=== PATIENT | female | born 1965 | race Caucasian/White ===

== ENCOUNTER 2016-12-08 12:33 | Emergency (ER) | payer BC ==
--- NOTE | 2016-12-08 13:50 | EDM.PDOC ---
ED HPI Behavioral Health - General Chief Complaint: Drug or Alcohol Abuse Stated Complaint: DETOX- ALCOHOL Time Seen by Provider: 12/08/16 12:42 Source of Information: Reports: Patient, Family (), RN notes reviewed Exam Limitations: Reports: No limitations - History of Present Illness INITIAL COMMENTS - FREE TEXT/NARRATIVE: The patient states that she spoke to Giselle, a counselor at [facility], this morning, regarding her alcoholism. She states that she is having difficulty stopping drinking on her own. She was instructed to come to the ED for medical evaluation and clearance prior to her being admitted there for detoxification. The patient states that she drinks approximately 1 pint of vodka, 4 times a week. Her last drink was approximately at 02:00 this morning. She states that she has never previously entered either inpatient or outpatient treatment for alcohol abuse, and she has never been hospitalized as a result for alcoholism, either because of a toxic alcohol level, or because of an accident related to intoxication. She admits to having had 2 DUIs. At this time, the patient has no complaints. She does not feel jittery or tremulous. She has no nausea, and no headache. She is noted to be hemodynamically stable, with no hypertension, tachycardia, tachypnea, or fever. - Related Data Allergies Allergy/AdvReac Type Severity Reaction Status Date / Time No Known Allergies Allergy Verified 12/08/16 12:54 Home Medications: Home Meds Atenolol 100 mg PO DAILY 12/08/16 [History] Escitalopram [Lexapro] 20 mg PO DAILY 12/08/16 [History] Naltrexone 50 mg PO DAILY 12/08/16 [History] buPROPion [Wellbutrin SR] 150 mg PO BID 12/08/16 [History] busPIRone [Buspar] 10 mg PO BID 12/08/16 [History] neck Pain Score (Numeric/FACES): 3 Past Medical History Cardiovascular History: Reports: High cholesterol (untreated), Hypertension Genitourinary History: Reports: Urinary incontinence Musculoskeletal History: Reports: Neck pain, chronic Psychiatric History: Reports: Anxiety, Depression - Past Surgical History GI Surgical History: Reports: Bariatric procedure (February 2004) Social & Family History - Family History Family Medical History: Noncontributory - Tobacco Use Smoking Status *Q: Never Smoker Second Hand Smoke Exposure: No - Caffeine Use Caffeine Use: Reports: Coffee, Soda - Alcohol Use Alcohol Use History: Yes Days Per Week of Alcohol Use: 4 Number of Drinks Per Day: 10 Total Drinks Per Week: 40 - Recreational Drug Use Recreational Drug Use: Yes Drug Use in Last 12 Months: Yes Recreational Drug Type: Reports: Marijuana/Hashish Other Recreational Drug Type: yearly use Recreational Drug Use Frequency: Rarely - Living Situation & Occupation Living situation: Reports: , with spouse 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) ED ROS GENERAL - Review of Systems Review Of Systems: See Below Constitutional: Reports: no symptoms HEENT: Reports: No symptoms Respiratory: Reports: No Symptoms Cardiovascular: Reports: No symptoms Endocrine: Reports: no symptoms GI/Abdominal: Reports: No symptoms : Reports: no symptoms Musculoskeletal: Reports: no symptoms Skin: Reports: no symptoms Neurological: Reports: No Symptoms Psychiatric: Reports: No symptoms Hematologic/Lymphatic: Reports: no symptoms Immunologic: Reports: no symptoms ED EXAM, BEHAVIORAL HEALTH - Physical Exam Exam: See Below Exam Limited By: No limitations General Appearance: alert, WD/WN, no apparent distress Eye Exam: bilateral eye: EOMI, normal inspection Ears: normal external exam, hearing grossly normal Nose: normal inspection, no blood Throat/Mouth: Normal inspection, Normal lips, Normal voice, No airway compromise Head: atraumatic, normocephalic Neck: normal inspection, full range of motion Respiratory/Chest: no respiratory distress, lungs clear, normal breath sounds, no accessory muscle use, chest non-tender Cardiovascular: normal peripheral pulses, regular rate, rhythm, no edema, no gallop, no JVD, no murmur, no rub GI/Abdominal: normal bowel sounds, soft, non tender, no organomegaly, no distention, no abnormal bruit, no mass, other (Obese) Back Exam: normal inspection, full range of motion, NT Extremities: normal inspection, normal range of motion, non-tender, normal capillary refill, no pedal edema Neurological: alert, normal cognition, no motor/sensory deficits, oriented x 3 Psychiatric: normal affect Skin Exam: Warm, Dry, Intact, Normal color, No rash COURSE, BEHAVIORAL HEALTH COMP - Course Vital Signs: Last Vital Signs Temp 36.6 C 12/08/16 12:40 Pulse 63 12/08/16 16:26 Resp 18 12/08/16 16:26 BP 132/71 12/08/16 16:26 Pulse Ox 98 12/08/16 16:26 Orders, Labs, Meds: Laboratory Tests 12/08/16 Range/Units 14:49 Ethyl Alcohol 0.03 (0.00) gm% Medical Clearance: 12/08/16 13:40 Case discussed with Giselle, counselor at [facility]. She stated that the plan was to have the patient admitted to their crisis bed for "detox", and that the patient was sent to the ED for medical clearance. If I find that the patient is medically cleared, they would like me to give orders to their nurse. I asked what was meant by "detox" and was told that it involved medical treatment for alcohol withdrawal. In my medical opinion, the patient does not require medical detoxification. She is currently sober with no withdrawal symptoms whatsoever, and, further, is at extremely low risk for developing alcohol withdrawal symptoms, as she drinks only a pint of vodka 4 times a week. I believe the patient would be best served with outpatient rehabilitation, and consider inpatient rehabilitation ( not detoxification) only if outpatient fails. This was relayed to Giselle, who nevertheless would prefer to place the patient into their crisis bed. I am prepared to document medical clearance for the patient, but I am not appeared to give orders for medical detoxification that I don't believe the patient needs. 12/08/16 13:55 Notified that [facility] would like an alcohol level on the patient. If her alcohol level is above 0.30, they cannot accept her. Unfortunately, the medical indication for an alcohol level from the emergency department is as part of an evaluation for altered mental status. In this case , the patient is completely sober, and I have no medical justification for work during an alcohol level, although I acknowledge [facility] interest in determining an alcohol level prior to accepting the patient. Since I have already determined that the patient is medically stable, the appropriate route for obtaining an alcohol level would be for the patient have this drawn as an outpatient, ordered by her PCP. Under these circumstances, the test would likely be covered by insurance, whereas if I ordered it through the ED, it likely would not. 12/08/16 14:51 Case discussed with Ciarra, Automatic Pilot [employer]. She states that she just has a contract with [facility] that allows an alcohol level to be performed for the purpose of medical clearance. 12/08/16 15:40 The patient's alcohol level is 0.03. This has been relayed to call Giselle Estrella. She stated that she will have the admission nurse call me for orders that includes only the patient's usual home medications. Departure - Departure Time of Disposition: 16:08 Disposition: Home, Self-Care 01 Condition: good Clinical Impression: Alcohol abuse Instructions: Alcohol Abuse and Nutrition Referrals: Slime Saez NP [Primary Care Provider] - Additional Instructions: You were seen in the Emergency Room today for medical clearance before being admitted to [facility] for treatment of alcoholism. We find that you are medically fit for either inpatient or outpatient alcohol treatment. Please go directly to [facility] at: [address], in [facility] on the [facility] campus, as arranged. Continue taking your usual home medications. If any other problems, please do not hesitate to return to the ER.
[2016-12-08 16:29] VITALS: BP 132/71
== END 2016-12-08 16:30 | disposition home or self-care (01) ==
LOC: JD.ED 12:33
DX: F10.10 Alcohol abuse, uncomplicated (principal); E78.00 Pure hypercholesterolemia, unspecified; I10 Essential (primary) hypertension; F41.9 Anxiety disorder, unspecified; F32.9 Major depressive disorder, single episode, unspecified; Z98.84 Bariatric surgery status; Y90.0 Blood alcohol level of less than 20 mg/100 ml
CPT/HCPCS: 36415; 99285; G0480; 99283

== ENCOUNTER 2020-12-13 04:23 | Emergency (ER) | payer BC, OTHER ==
[2020-12-13 04:56] VITALS: BP 173/99; PULSE 110
[2020-12-13] MEDS ORDERED: Sodium Chloride 0.9% 1,000 ML IV ONE (05:03)
[2020-12-13] MEDS ORDERED: Benztropine 1 MG Tab PO STA (05:03)
[2020-12-13] MEDS ORDERED: Ondansetron 4 MG/2 ML SDV IVPUSH ONE (05:03)
[2020-12-13] MEDS ORDERED: Haloperidol Lactate 5 MG/ML SDV IM ONE (05:03)
--- NOTE | 2020-12-13 05:09 | EDM.PDOC ---
ED HPI GENERAL MEDICAL PROBLEM - General Chief Complaint: Headache Stated Complaint: weak headache sick to stomach Time Seen by Provider: 12/13/20 04:44 Source of Information: Reports: Patient History Limitations: Reports: No Limitations - History of Present Illness INITIAL COMMENTS - FREE TEXT/NARRATIVE: Mrs. Mccain is a very pleasant 54-year-old woman who now presents the ED stating that she has had a continuous headache the past 2 days, since this past 12/11/2020. She is unable to describe the character of the pain, but states that it is felt across her entire forehead and behind her eyes, and also at the base of her skull. She has had both nausea and vomiting, and reports photophobia, although denies having phonophobia, visual changes, such as blurry vision, wavy lines, or flashing lights, and denies neurologic symptoms, such as tingling, numbness, or weakness. She states that her current headache is similar to headaches that she initially developed when she was a teenager, and were treated as migraines with rizatriptan, however, she states that she has not had such a headache for the past 15 years. She states that she has never had an imaging study of her head, either MRI or CT scan. The patient states that she took some ibuprofen Monday morning, and again Monday evening, without any improvement in her symptoms. Here in the ED, the patient's initial BP is found to be elevated at 173/99, with tachycardia of 110 bpm. She is afebrile, saturating 99% on room air. Prior to Monday, the patient denies having a recent fever, chills, sore throat, ear pain, nasal or sinus congestion, cough, dyspnea, chest pain, palpitations, nausea, vomiting, constipation, diarrhea, abdominal pain, urinary symptoms, recent weight gain or weight loss, recent bloody bowel movements or black bowel movements, recent joint aches, headaches, or rashes. The patient's PCP is Slime Saez NP. She has not received an influenza vaccine this season, and declined an offer to get one here in the ED. Headache Pain Score (Numeric/FACES): 8 - Related Data Allergies Allergy/AdvReac Type Severity Reaction Status Date / Time No Known Allergies Allergy Verified 12/08/16 12:54 Home Meds: Home Meds atenoloL [Atenolol] 100 mg PO DAILY 12/08/16 [History] buPROPion [Wellbutrin SR] 150 mg PO BID 12/08/16 [History] busPIRone [Buspar] 10 mg PO BID 12/08/16 [History] PARoxetine HCl [Paxil] 40 mg PO DAILY 12/13/20 [History] Rizatriptan Benzoate [Rizatriptan] 1 tab PO ASDIRECTED PRN #3 tab.rapdis 12/13/20 [Rx] methocarbamoL [Methocarbamol] 750 mg PO DAILY 12/13/20 [History] traZODone HCl [Trazodone HCl] 50 mg PO BEDTIME PRN 12/13/20 [History] Past Medical History Cardiovascular History: Reports: High Cholesterol (untreated), Hypertension Neurological History: Reports: Migraines Psychiatric History: Reports: Anxiety, Depression Endocrine/Metabolic History: Reports: Obesity/BMI 30+ - Past Surgical History HEENT Surgical History: Reports: Oral Surgery (dental extractions) GI Surgical History: Reports: Bariatric Procedure (Trung-en-Y gastric bypass Feb 2004) Musculoskeletal Surgical History: Reports: Amputation (right thumb, partial) Social & Family History - Tobacco Use Tobacco Use Status *Q: Never Tobacco User - Caffeine Use Caffeine Use: Reports: None - Alcohol Use Alcohol Use History: Yes Alcohol Use Frequency: Socially - Recreational Drug Use Recreational Drug Use: No - Living Situation & Occupation Living situation: Reports: (), Other (with friends) Occupation: Unemployed ED ROS GENERAL - Review of Systems Review Of Systems: Comprehensive ROS is negative, except as noted in HPI. - Physical Exam Exam: See Below Exam Limited By: No Limitations General Appearance: Alert, WD/WN, No Apparent Distress Eye Exam: Bilateral Eye: EOMI, Normal Inspection Ears: Normal External Exam, Normal Canal, Hearing Grossly Normal, Normal TMs Nose: Normal Inspection, Normal Mucosa, No Blood Throat/Mouth: Normal Inspection, Normal Lips, Normal Teeth, Normal Gums, Normal Oropharynx, Normal Voice, No Airway Compromise Head Exam: Atraumatic, Normocephalic Neck: Normal Inspection, Supple, Non-Tender, Full Range of Motion, Lymphadenopathy (L), Lymphadenopathy (R) Respiratory/Chest: No Respiratory Distress, Lungs Clear, Normal Breath Sounds, No Accessory Muscle Use Cardiovascular: Normal Peripheral Pulses, Regular Rate, Rhythm, No Edema, No Gallop, No JVD, No Murmur, No Rub GI/Abdominal: Normal Bowel Sounds, Soft, Non-Tender, No Organomegaly, No Distention, No Abnormal Bruit, No Mass Neuro Exam (Abbreviated): Alert, Oriented, CN II-XII Intact, Normal Cognition, No Motor/Sensory Deficits Back Exam: Normal Inspection, Full Range of Motion, NT Extremities: Normal Inspection, Normal Range of Motion, No Pedal Edema, Normal Capillary Refill Psychiatric: Normal Affect Skin Exam: Warm, Intact, Normal Color, No Rash, Diaphoretic (mild) Course - Vital Signs Last Recorded V/S: Last Vital Signs Temp 35.9 C L 12/13/20 04:31 Pulse 110 H 12/13/20 04:31 Resp 18 12/13/20 04:31 BP 173/99 H 12/13/20 04:31 Pulse Ox 99 12/13/20 04:31 - Orders/Labs/Meds Orders: Active Orders 24 hr Category Date Time Status Head wo Cont [CT] Stat Exams 12/13/20 05:03 Taken Meds: Medications Discontinued Medications Generic Name Dose Route Start Last Admin Trade Name Freq PRN Reason Stop Dose Admin Benztropine Mesylate 1 mg 12/13/20 05:03 12/13/20 05:12 Benztropine 1 Mg Tab PO 12/13/20 05:04 1 mg ONETIME STA Administration Haloperidol Lactate 5 mg 12/13/20 05:03 12/13/20 05:12 Haloperidol Lactate 5 Mg/Ml Sdv IM 12/13/20 05:04 5 mg ONETIME ONE Administration Sodium Chloride 1,000 mls @ 999 mls/hr 12/13/20 05:03 12/13/20 05:11 Normal Saline IV 12/13/20 06:03 999 mls/hr ONETIME ONE Administration Ondansetron HCl 4 mg 12/13/20 05:03 12/13/20 05:11 Ondansetron 4 Mg/2 Ml Sdv IVPUSH 12/13/20 05:04 4 mg ONETIME ONE Administration - Re-Assessments/Exams Free Text/Narrative Re-Assessment/Exam: 12/13/20 05:04 As above, the patient has had a bifrontal and posterior headache, associated with nausea, vomiting, and photophobia, since Monday. Ibuprofen that she took on Monday morning and evening did not help. She reports a history of migraines, but none for the past 15 years. She states that she has never had an imaging study of her head, either an MRI or CT scan. Her neurologic examination today is normal. I have ordered treatment with IM Haldol, oral Cogentin, IV Zofran, and IV fluid. I have also ordered a CT of the head without contrast, but it can be delayed until the patient gets some relief first. 12/13/20 06:07 CT of the head without contrast is read by Radha as "No acute intracranial pathology." 12/13/20 06:14 The patient states that she has some improvement in her headache, enough that she feels okay in going home. I will submit a prescription for rizatriptan. Departure - Departure Time of Disposition: 06:15 Disposition: Home, Self-Care 01 Condition: Good Clinical Impression: Migraine headache without aura - Discharge Information *PRESCRIPTION DRUG MONITORING PROGRAM REVIEWED*: Not Applicable *COPY OF PRESCRIPTION DRUG MONITORING REPORT IN PATIENT PHYLLIS: Not Applicable Referrals: Slime Saez NP [Primary Care Provider] - Forms: ED Department Discharge, ED Return to Work/School Form Additional Instructions: You were seen in the emergency room for 2 days of a headache with nausea, vomiting, and sensitivity to light. Work-up in ER included a CT scan of your head, which returned unremarkable. You had some improvement in your headache following treatment with a neuroleptic medicine and antinausea medicine. We recommend that you stay adequately hydrated and get plenty of rest in a dark, quiet place. A prescription for the anti-migraine medicine rizatriptan (Maxalt) has been sent to the [facility], located just south and across the street from [facility]. Dissolve 1 tablet of rizatriptan in your mouth, like a lozenge, at the earliest onset of migraine symptoms. You may repeat after 2 hours, if necessary, to a maximum of 3 tablets within a 24-hour period. If this medicine works well for you, please talk to your PCP, Slime Saez NP, to get an additional prescription. A note for work has been provided to you. If any other problems, please do not hesitate to return to the ER. Sepsis Event Note (ED) - Evaluation Sepsis Screening Result: No Definite Risk - Focused Exam Vital Signs: Vital Signs Temp Pulse Resp BP Pulse Ox 12/13/20 04:31 35.9 C L 110 H 18 173/99 H 99 - My Orders Last 24 Hours: My Active Orders 12/13/20 05:03 Head wo Cont [CT] Stat - Assessment/Plan Last 24 Hours: My Active Orders 12/13/20 05:03 Head wo Cont [CT] Stat
--- NOTE | 2020-12-13 09:53 | CT ---
Head CT Technique: Multiple axial sections through the brain were obtained. Intravenous contrast was not utilized. Comparison: No prior intracranial imaging is available. Findings: Ventricles along with basal cisterns and sulci over the convexities are slightly prominent. No abnormal parenchymal densities are seen. No evidence of intracranial hemorrhage. No midline shift or mass-effect is seen. Bone window settings were reviewed which show no acute calvarial finding. Visualized mastoid sinuses and paranasal sinuses show nothing acute. Impression: 1. Mild generalized atrophy. 2. Nothing acute is appreciated on noncontrast head CT exam. Diagnostic code #2 I agree with preliminary report from ad, finalized on 12/13/20, 7:04 AM CDT
== END 2020-12-13 06:29 | disposition home or self-care (01) ==
LOC: JD.ED 04:23
DX: G43.009 Migraine without aura, not intractable, without status migrainosus (principal); I10 Essential (primary) hypertension; E66.9 Obesity, unspecified; Z68.30 Body mass index [BMI] 30.0-30.9, adult; Z79.899 Other long term (current) drug therapy
CPT/HCPCS: 70450; 96372; 96374; 99283; A9270; J1630; J2405; J7030; 99284

== ENCOUNTER 2021-01-29 19:50 | Emergency (ER) | payer SELFPAY ==
[2021-01-29 20:11] VITALS: BP 129/82; PULSE 69
--- NOTE | 2021-01-29 20:31 | EDM.PDOCBH ---
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 Mccain is a very pleasant 55-year-old woman who now presents to the ED for medical clearance to go to [facility]. She states that she ordinarily drinks on the weekends, sometimes heavily, sometimes not, but that, due to life stressors, including a divorce, she has been drinking about 1 pint of vodka per day for the past few weeks. She states that she drank 2 shots of vodka today, with her last shot around 1500 this afternoon. She denies a history of recreational drug use. The patient states that she has been to inpatient treatment twice in the past, the first many years ago in [place], for 5.5 weeks, the second about 3 or 4 years ago at [facility]. She states that she was there for about a month before she was kicked out due to "dirty urine". She has never been hospitalized related to her alcoholism. She has a history of 2 DUIs many years ago. She denies social consequences of drinking, such as loss of job or divorce; she states that her current divorce is not related to her drinking. Here in the ED, the patient is found to be hemodynamically stable, afebrile, saturating 96% on room air. She appears to be comfortable, in no acute distress. The patient denies having a recent fever, chills, sore throat, ear pain, nasal or sinus congestion, cough, dyspnea, chest pain, palpitations, nausea, vomiting, constipation, diarrhea, abdominal pain, urinary symptoms, recent weight gain or weight loss, recent bloody bowel movements or black bowel movements, recent joint aches, headaches, or rashes. The patient's PCP is URIAH Hopkins. She does not recall the name of her Orthopedic Surgeon at [facility]. - Related Data Allergies Allergy/AdvReac Type Severity Reaction Status Date / Time No Known Allergies Allergy Verified 01/29/21 20:11 Home Meds: Home Meds atenoloL [Atenolol] 100 mg PO DAILY 03/16/17 [History] buPROPion [Wellbutrin SR] 150 mg PO BID 12/08/16 [History] busPIRone [Buspar] 10 mg PO BID 12/08/16 [History] PARoxetine HCl [Paxil] 40 mg PO DAILY 12/13/20 [History] methocarbamoL [Methocarbamol] 750 mg PO DAILY 12/13/20 [History] traZODone HCl [Trazodone HCl] 50 mg PO BEDTIME PRN 12/13/20 [History] Past Medical History Cardiovascular History: Reports: Hypertension Genitourinary History: Reports: Urinary Incontinence (stress incontinence) Psychiatric History: Reports: Anxiety, Depression, Other (See Below) (Fibromyalgia, insomnia) Endocrine/Metabolic History: Reports: Obesity/BMI 30+ - Past Surgical History HEENT Surgical History: Reports: Oral Surgery (dental extractions) GI Surgical History: Reports: Bariatric Procedure (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 ED EXAM, BEHAVIORAL HEALTH - Physical Exam Exam: See Below Exam Limited By: No Limitations General Appearance: Alert, WD/WN, No Apparent Distress Eye Exam: Bilateral Eye: EOMI, Normal Inspection Ears: Normal External Exam, Hearing Grossly Normal Nose: Normal Inspection Throat/Mouth: Normal Inspection, Normal Lips, Normal Voice, No Airway Compromise Head: Atraumatic, Normocephalic Neck: Normal Inspection, Full Range of Motion Respiratory/Chest: No Respiratory Distress, Lungs Clear, Normal Breath Sounds, No Accessory Muscle Use Cardiovascular: Normal Peripheral Pulses, Regular Rate, Rhythm, No Gallop, No JVD, No Murmur, No Rub GI/Abdominal: Normal Bowel Sounds, Soft, Non-Tender, No Organomegaly, No Distention, No Abnormal Bruit, No Mass Back Exam: Normal Inspection, Full Range of Motion, NT Extremities: Normal Inspection, Normal Range of Motion, No Pedal Edema, Normal Capillary Refill Neurological: Alert, Normal Cognition, No Motor/Sensory Deficits, Oriented x 3 Psychiatric: Normal Affect Skin Exam: Warm, Dry, Intact, Normal color, No rash COURSE, BEHAVIORAL HEALTH COMP - Course Vital Signs: Last Vital Signs Temp 36.1 C 01/29/21 20:08 Pulse 69 01/29/21 20:08 Resp 18 01/29/21 20:08 BP 129/82 01/29/21 20:08 Pulse Ox 96 01/29/21 20:08 Orders, Labs, Meds: Laboratory Tests 01/29/21 01/29/21 01/29/21 Range/Units 20:25 20:35 20:35 WBC 6.83 (3.98-10.04) K/mm3 RBC 4.32 (3.98-5.22) M/mm3 Hgb 10.9 L (11.2-15.7) gm/dl Hct 35.3 (34.1-44.9) % MCV 81.7 (79.4-94.8) fl MCH 25.2 L (25.6-32.2) pg MCHC 30.9 L (32.2-35.5) g/dl RDW Std Deviation 51.9 H (36.4-46.3) fL Plt Count 291 (182-369) K/mm3 MPV 9.5 (9.4-12.3) fl Neutrophils % (Manual) 37 L (40-60) % Band Neutrophils % 0 (0-10) % Lymphocytes % (Manual) 50 H (20-40) % Atypical Lymphs % 7 % Monocytes % (Manual) 6 (2-10) % Eosinophils % (Manual) 0 L (0.7-5.8) % Basophils % (Manual) 0 L (0.1-1.2) Platelet Estimate Adequate Hypochromasia 1+ slight Poikilocytosis 1+ slight Anisocytosis 1+ slight Sodium 139 (136-145) mEq/L Potassium 4.5 (3.5-5.1) mEq/L Chloride 102 (98-107) mEq/L Carbon Dioxide 29 (21-32) mEq/L Anion Gap 12.5 (5-15) BUN 20 H (7-18) mg/dL Creatinine 1.0 (0.55-1.02) mg/dL Est Cr Clr Drug Dosing 60.91 mL/min Estimated GFR (MDRD) 58 (>60) mL/min BUN/Creatinine Ratio 20.0 H (14-18) Glucose 91 (74-106) mg/dL Calcium 8.0 L (8.5-10.1) mg/dL Magnesium 2.0 (1.8-2.4) mg/dl Total Bilirubin 0.1 L (0.2-1.0) mg/dL AST 23 (15-37) U/L ALT 14 (14-59) U/L Alkaline Phosphatase 68 (46-116) U/L Total Protein 6.4 (6.4-8.2) g/dl Albumin 3.2 L (3.4-5.0) g/dl Globulin 3.2 gm/dL Albumin/Globulin Ratio 1.0 (1-2) Urine Opiates Screen Negative (EJPTML=457) Ur Buprenorphine Scrn Negative (CUTOFF=10) Ur Oxycodone Screen Negative (ICO0UF=162) Urine Methadone Screen Negative (FPRVXT=982) Ur Propoxyphene Screen Negative (YNFNJR=927) Ur Barbiturates Screen Negative (CNCKFW=945) Ur Tricyclics Screen Negative (JPKYBD=710) Ur Phencyclidine Scrn Negative (CUTOFF=25) Ur Amphetamine Screen Negative (WLHXUQ=271) U Methamphetamines Scrn Negative (XMGWAA=514) U Benzodiazepines Scrn Negative (TYVYRU=002) U Cocaine Metab Screen Negative (HBIJBL=185) U Marijuana (THC) Screen Negative (CUTOFF=50) Ethyl Alcohol 0.30 (0.00) gm% 01/29/21 Range/Units 21:45 WBC (3.98-10.04) K/mm3 RBC (3.98-5.22) M/mm3 Hgb (11.2-15.7) gm/dl Hct (34.1-44.9) % MCV (79.4-94.8) fl MCH (25.6-32.2) pg MCHC (32.2-35.5) g/dl RDW Std Deviation (36.4-46.3) fL Plt Count (182-369) K/mm3 MPV (9.4-12.3) fl Neutrophils % (Manual) (40-60) % Band Neutrophils % (0-10) % Lymphocytes % (Manual) (20-40) % Atypical Lymphs % % Monocytes % (Manual) (2-10) % Eosinophils % (Manual) (0.7-5.8) % Basophils % (Manual) (0.1-1.2) Platelet Estimate Hypochromasia Poikilocytosis Anisocytosis Sodium (136-145) mEq/L Potassium (3.5-5.1) mEq/L Chloride (98-107) mEq/L Carbon Dioxide (21-32) mEq/L Anion Gap (5-15) BUN (7-18) mg/dL Creatinine (0.55-1.02) mg/dL Est Cr Clr Drug Dosing mL/min Estimated GFR (MDRD) (>60) mL/min BUN/Creatinine Ratio (14-18) Glucose (74-106) mg/dL Calcium (8.5-10.1) mg/dL Magnesium (1.8-2.4) mg/dl Total Bilirubin (0.2-1.0) mg/dL AST (15-37) U/L ALT (14-59) U/L Alkaline Phosphatase (46-116) U/L Total Protein (6.4-8.2) g/dl Albumin (3.4-5.0) g/dl Globulin gm/dL Albumin/Globulin Ratio (1-2) Urine Opiates Screen (KJXXWG=518) Ur Buprenorphine Scrn (CUTOFF=10) Ur Oxycodone Screen (ADQ4CW=378) Urine Methadone Screen (MLBXWE=324) Ur Propoxyphene Screen (IVJPNY=807) Ur Barbiturates Screen (FQCYPJ=323) Ur Tricyclics Screen (VHWXBA=667) Ur Phencyclidine Scrn (CUTOFF=25) Ur Amphetamine Screen (LYFIOC=158) U Methamphetamines Scrn (ELGSGY=873) U Benzodiazepines Scrn (ZYNEUL=711) U Cocaine Metab Screen (LALDEU=199) U Marijuana (THC) Screen (CUTOFF=50) Ethyl Alcohol 0.27 (0.00) gm% Medical Clearance: 01/29/21 20:25 As above, the patient has a history of relatively mild binge alcoholism, although she states that she has been drinking about 1 pint of vodka per day for the past few weeks, with her last drink around 15:00 this afternoon, but only consuming 2 shots total today. She is here for medical clearance to go to [facility]. Her risk of the development of DTs is extremely low. I have ordered a work-up that includes several blood tests and a urine drug screen. 01/29/21 21:21 The patient's CBC is remarkable for a Hgb slightly depressed at 10.9, with a Hct normal at 35.3, and the remainder of her CBC being unremarkable. Her CMP is remarkable for a BUN slightly elevated at 20, but with a Cr normal at 1.0, and the remainder of her CMP being unremarkable. Her magnesium level is within normal limits at 2.0. Her EtOH level is significantly elevated at 0.30. Her urine drug screen is completely negative. 01/29/21 21:30 Test results discussed with the patient and the admitting representative from [facility]. As above, the only abnormality is an alcohol level elevated at 0.30. This indicates that the patient drank more than 2 shots of vodka, with her last drink at 15:00 this afternoon. Additionally, the patient's lucidity despite a significantly elevated alcohol level indicates a quantity and chronicity of drinking greater than she described. I explained to the patient that her lack of candidness can be a barrier to adequate treatment. From our cc perspective, they can take her, provided her EtOH level is below 0.30. Her EtOH level was drawn at 20:35, therefore her EtOH level is already below 0.30, however, the admitting representative from [facility] stated that they need to see that based on a blood draw. We will therefore repeat an EtOH level now, and, once back, the patient can go to [facility]. 01/29/21 22:32 The patient's repeat EtOH level is down to 0.27. 01/29/21 22:34 The latest EtOH level discussed with the patient and the [facility] admitting representative. [facility] is willing to take the patient now. They asked that I order what med ications she is permitted to take while there. Departure - Departure Time of Disposition: 22:35 Disposition: Home, Self-Care 01 Condition: Good Clinical Impression: Alcoholism, Alcohol intoxication - Discharge Information *PRESCRIPTION DRUG MONITORING PROGRAM REVIEWED*: Not Applicable *COPY OF PRESCRIPTION DRUG MONITORING REPORT IN PATIENT PHYLLIS: Not Applicable Referrals: Slime Saez NP [Primary Care Provider] - Forms: ED Department Discharge Additional Instructions: You were seen in the emergency room for medical clearance in order to go to [facility] for treatment for alcoholism. Work-up in the ER included several blood tests and a urine drug screen. Your work-up found your alcohol level to be significantly elevated at 0.30. A repeat alcohol level about 1 hour later was down to 0.27. The remainder of your work-up was unremarkable. From a medical standpoint, you are fit to go to [facility] for treatment. If any other problems, please do not hesitate to return to the ER. Sepsis Event Note (ED) - Evaluation Sepsis Screening Result: No Definite Risk - Focused Exam Vital Signs: Vital Signs Temp Pulse Resp BP Pulse Ox 01/29/21 20:08 36.1 C 69 18 129/82 96
== END 2021-01-29 22:40 | disposition home or self-care (01) ==
LOC: JD.ED 19:50
DX: F10.229 Alcohol dependence with intoxication, unspecified (principal); I10 Essential (primary) hypertension; E66.9 Obesity, unspecified; Z68.32 Body mass index [BMI] 32.0-32.9, adult; Y90.8 Blood alcohol level of 240 mg/100 ml or more
CPT/HCPCS: 36415; 80053; 80306; 80307; 83735; 85007; 85027; 99283